=== PATIENT | female | born 1945 | race Two or more races ===

== ENCOUNTER 2021-10-11 17:07 | Emergency (ER) | payer OTHER ==
[~2021-10-11] VITALS: Ht 162.6 cm; Wt 104.3 kg
--- NOTE | 2021-10-11 17:11 | NUR ---
[id number] notified
[2021-10-11] MEDS ORDERED: METF-440 PO (17:23)
[2021-10-11] MEDS ORDERED: BENA40TA8 PO (17:23)
[2021-10-11] MEDS ORDERED: METO-358 PO (17:23)
[2021-10-11 17:29] LABS: HEMATOCRIT 39.8 % (31.2-41.9); MEAN CORPUSCULAR HEMOGLOBIN 30.5 uug (24.7-32.8); MEAN CORPUSCULAR VOLUME 91.9 fL (75.5-95.3); PLATELET COUNT (AUTO) 302 K/uL (179-408)
[2021-10-11 17:40] LABS: POTASSIUM 3.6 mmol/L (3.5-5.1)
[2021-10-11 17:53] LABS: BILIRUBIN,TOTAL 0.3 mg/dL (0.2-1.0); TOTAL PROTEIN, SERUM 7.8 g/dL (6.4-8.2)
[2021-10-11] MEDS ORDERED: MORPHINE SULFATE 4 MG/1 ML DISP.SYRIN IV ONE (18:15)
[2021-10-11] MEDS ORDERED: ONDANSETRON 4 MG/2 ML VIAL IV ONE (18:15)
--- NOTE | 2021-10-11 18:21 | NUR ---
pt unable to lay flat for ct scan, medicated per md order.
[2021-10-11] MEDS ORDERED: MORPHINE SULFATE 4 MG/1 ML DISP.SYRIN ONE (18:23)
[2021-10-11] MEDS ORDERED: ONDANSETRON 4 MG/2 ML VIAL ONE (18:34)
[2021-10-11] MEDS ORDERED: SWABABLE VALVE TRANSFER SET EA MC ONE (19:14)
[2021-10-11] MEDS ORDERED: IV NORMAL SALINE 250 ML IV ONE (19:14)
[2021-10-11] MEDS ORDERED: IOHEXOL 300MG/ML 100 ML INFUS..BTL ONE (19:14)
--- NOTE | 2021-10-11 19:25 | NUR ---
Received report from charge nurse Adrian, Pt just came in for new onset CHF aeb bilat pedal edema. EDMD Dr. Drummond at bedside discussing dispo with patient and two daughters, one at the bedside and one on speakerphone. Pt has good color and appearance, aaox4, Lungs clear bilat up top, a little guncky down in the lower lobes , oxygenating and perfusing well, 98%RA, 63bpm, NSR without ectopy. Pt's family states that she has a marked difference in behavior and cognition x 1 or 2 weeks, they were worried that she might have had a stroke. EDMD read CT brain results to pt and family, results show indication of CVA. CXR shows fluid starting to collect in the lungs. Pt is in good spirits, states that she is getting over a cold. Pt nonvaccinated despite familys pleas. Pt denies any pain, sob, n/v, dizziness, or discomfort. No s/sx of distres present.
[2021-10-11 19:31] LABS: NEUTROPHILS % (MANUAL) 0 % (42-75)
--- NOTE | 2021-10-11 19:50 | NUR ---
second and third EKG attempted with RT's EKG machine since ours was showing a lot of interferance. Problem was not resolved with new machine and fresh patches and changing lead placement. EKG is negative for OK, shows normal EKG
--- NOTE | 2021-10-11 20:55 | NUR ---
Pt resting comfortably, watching TV on gurney, in pos of comfort, all needs met, rails up . call light in hand.
--- NOTE | 2021-10-11 21:09 | NUR ---
accucheck shows BG: of 236. 3 units coverage will be given. along with dinner tray per pt request.
--- NOTE | 2021-10-11 21:10 | NUR ---
Upon asking the pt about her diabetes, she informed me that she does not take insulin and is only prescribed metformin and to monitor BG levels. So since she does not take insulin, no coverage is needed and EDMD canceled sliding call order. Pt was given dinner tray of pasta with cranberry juice and fruit cocktail plus a soup. Pt set up to eat dinner and is being helped by daughter.
--- NOTE | 2021-10-11 21:30 | NUR ---
Pts insurance informed us that [facility], transfer process initiated.
--- NOTE | 2021-10-11 22:55 | NUR ---
Transfer center at [place] [facility] called asking for a facesheet to be faxed at [phone]. Face sheet just faxed right now. confirmation given.
--- NOTE | 2021-10-12 00:04 | NUR ---
Calling Isabela CARPENTER receiving nurse at [facility] at [phone] to
--- NOTE | 2021-10-12 00:21 | NUR ---
Called [facility] and gave thorough report to accepting JAYDEN Mar using SBAR method. All questions receiving RN had was answered and green light given to transfer. Called [facility], spoke to rep Mcnally and and ETA of 30 min given for turkey picker to [facility]. ETA approx 0100, pt and family informed.
--- NOTE | 2021-10-12 00:40 | NUR ---
appeals board referee arrive to tranport pt to [facility]. Pt loaded up, all possessions collected and taken home by daughter. Final set of VS obtained, 100%RA, 177/67, 92% RA, 64bpm. Pt is aaox4, in good spirits and very greatful of services rendered. No s/sx of distress noted. Pt actually is a smiling and jovial mood. Daughter following entoe.
--- NOTE | 2021-10-12 00:45 | NUR ---
concrete pipe making machine operator promptly showed up in only 15 min after dispatching. Brief report was given using SBAR and final vs obtained. SBP still elevated, receiveing nurse aware and is planing on giving BP meds. pt was loaded up onto amb stretcher without incident and secured for the ride. Pt very thankful for services rendered and in good spirits, Daughter following entoe, with all belongs accounted for. No s/sx of distress present. DC instructions given and daughter confirmed understanding of aftercare, no script provided.
[2021-10-12] MEDS ORDERED: IBUPROFEN 800 MG TABLET ONE (00:54)
--- NOTE | 2021-10-12 01:00 | NUR ---
Pt dced to [facility] where accepting RN Isabela is expecting her.
[2021-10-12 05:55] VITALS: BP 177/67
== END 2021-10-12 01:00 | disposition short-term general hospital (02) ==
LOC: ER 17:08
DX: I63.9 Cerebral infarction, unspecified (principal); R47.89 Other speech disturbances; I11.0 Hypertensive heart disease with heart failure; I50.9 Heart failure, unspecified; E78.5 Hyperlipidemia, unspecified; R77.8 Other specified abnormalities of plasma proteins; R91.8 Other nonspecific abnormal finding of lung field; R60.0 Localized edema; M54.50 Low back pain, unspecified; D72.829 Elevated white blood cell count, unspecified; E11.65 Type 2 diabetes mellitus with hyperglycemia; Z79.84 Long term (current) use of oral hypoglycemic drugs; Z20.822 Contact with and (suspected) exposure to COVID-19; I48.91 Unspecified atrial fibrillation; I44.4 Left anterior fascicular block
CPT/HCPCS: 36415; 70450; 71045; 74177; 80053; 82962; 83880; 84484 ×2; 85007; 85025; 87426; 93005 ×2; 93970; 96374; 99285; J2270; Q9967; 70030-TC; A4663; J2405; J7050